=== PATIENT | male | born 1965 | race Caucasian/White ===

== ENCOUNTER 2018-06-11 11:11 | Emergency (ER) | payer SELFPAY ==
[~2018-06-11] VITALS: Ht 172.7 cm; Wt 53.1 kg
[~2018-06-11 11:11] MED LIST: AMOX-355 PO; BSP10T PO; CITA10TA70 PO; FLC100T1 PO; HYOS0.1217 PO; LEVO500T69 PO; METO-352 PO; METR500T PO; NYST1000 PO; ONDAN4ODT PO; PNT40TEC PO
--- OUTSIDE RECORDS SUMMARY | 2018-06-11 11:18 | XMS REPORT | Continuity of Care Document ---
Author Author [facility] Organization [facility] Address Unknown Phone Unavailable Allergies Active Description Code Type Severity Reaction Onset Reported/Identified Relationship to Patient Clinical Status Yes No Known Drug Allergies [id number] Drug Allergy Unknown N/A 01/28/2012 Medications There is no data. Problems Date Dx Coded Attending Type Code Diagnosis Diagnosed By 02/04/2012 Ot 311 02/04/2012 Ot 401.9 02/04/2012 Ot 562.11 02/04/2012 Ot 569.5 12/17/2012 Ot 558.9 12/17/2012 Ot 562.10 12/17/2012 Ot 789.00 03/20/2015 Ot 288.60 Procedures There is no data. Results There is no data. Encounters ACCT No. Visit Date/Time Discharge Status Pt. Type Provider Facility Loc./Unit Complaint [id number] 03/20/2015 11:55:00 03/20/2015 15:43:00 DIS Emergency MARY SERRA, RICARDO Roman [facility] ER [id number] 06/11/2018 11:12:00 ACT Emergency EDUARDO SERRA, LUCAS [place] [facility] ER TROUBLE CATCHING BREATH,WEIGHT LOSS [id number] 03/20/2015 20:55:00 Document Registration [id number] 12/17/2012 11:55:00 Document Registration [id number] 02/10/2012 09:28:00 Document Registration
--- OUTSIDE RECORDS SUMMARY | 2018-06-11 11:18 | XMS REPORT ---
Author Author ANTWAN BOWMAN Organization [employer] Address Unknown Phone Unavailable Care Team Providers Care Vice Chancellor Name Role Phone ANTWAN BOWMAN CP Unavailable Allergies, Adverse Reactions, Alerts Substance Reaction Event Type N.K.D.A. Info Not Available Non Drug Allergy Problems Problem Type Condition Code Onset Dates Condition Status Assessment Tobacco abuse counseling Z71.6 Active Assessment Alcohol abuse F10.10 Active Assessment Tobacco abuse Z72.0 Active Assessment Decreased lung sounds R06.89 Active Problem Alcohol abuse F10.10 Active Problem Tobacco abuse Z72.0 Active Problem Elevated blood pressure (not hypertension) R03.0 Active Assessment General medical exam Z00.00 Active Assessment Elevated blood pressure (not hypertension) R03.0 Active Problem Tobacco abuse counseling Z71.6 Active Problem Decreased lung sounds R06.89 Active Medications Medication Code System Code Instructions Start Date End Date Status Dosage Abilify [facility] [address]-17 10 MG Orally Once a day 1 tablet Procedures Procedure Coding System Code Date Office Visit, New Pt., Level 3 CPT-4 27116 Oct 11, 2015 Vital Signs Date/Time: Oct 11, 2015 Temperature 97.0 F Weight 141.0 lbs Height 68 in BMI 21.44 Index Blood Pressure Diastolic 90 mmHg Blood Pressure Systolic 142 mmHg Cardiac Monitoring Heart Rate 70 bpm Results No Known Results Summary Purpose [employer] Submission
--- OUTSIDE RECORDS SUMMARY | 2018-06-11 11:18 | XMS REPORT ---
Author Author COLBY ANTWAN Organization [facility] Address [address] [place] [address] Care Team Providers Care Photographic Laboratory Supervisor Name Role Phone ANTWAN BOWMAN Unavailable PROBLEMS Type Condition ICD9-CM Code UTM43-SS Code Onset Dates Condition Status SNOMED Code Problem Paresthesia of skin R20.2 Active 30418872 Problem Tobacco abuse counseling Z71.6 Active 574861686 Problem Elevated blood pressure (not hypertension) R03.0 Active 515881392 Problem Decreased lung sounds R06.89 Active 54435102 Problem Tobacco abuse Z72.0 Active 62588002 Problem Alcohol abuse F10.10 Active 30887269 ALLERGIES No Information ENCOUNTERS Encounter Location Date Diagnosis [facility] [address] [address] Apr, Paresthesia of skin R20.2 and Pain in unspecified limb M79.609 [facility] [address] [address] Feb, [facility] [id number] [place] [phone] Nov, [facility] [id number] [place] [phone] 15 Sep, 2015 General medical exam Z00.00 ; Elevated blood pressure (not hypertension) R03.0 ; Alcohol abuse F10.10 ; Tobacco abuse Z72.0 ; Tobacco abuse counseling Z71.6 and Decreased lung sounds R06.89 [facility] [id number] [place] [phone] 14 Dec, 2014 [facility] [id number] [place] [phone] Dec, [facility] [id number] [address] Oct, IMMUNIZATIONS No Known Immunizations SOCIAL HISTORY Never Assessed REASON FOR VISIT Requests return call PLAN OF CARE VITAL SIGNS MEDICATIONS No Known Medications RESULTS No Results PROCEDURES No Known procedures INSTRUCTIONS MEDICATIONS ADMINISTERED No Known Medications MEDICAL (GENERAL) HISTORY Type Description Date Medical History hypertension Medical History depression Surgical History bowel surgery for ruptured diverticuli 01/2013 Surgical History left knee arthroscopy Surgical History right knee arthroscopy Surgical History shoulder dislocation Hospitalization History surgery
--- OUTSIDE RECORDS SUMMARY | 2018-06-11 11:18 | XMS REPORT ---
Author Author MEKA MAYA [facility] Address [address] [place] [address] Care Team Providers Care Information Clerk Name Role Phone MAYAMEKA Unavailable PROBLEMS Type Condition ICD9-CM Code WVK39-ZN Code Onset Dates Condition Status SNOMED Code Problem Tobacco abuse counseling Z71.6 Active 010709511 Problem Tobacco abuse Z72.0 Active 21930507 Problem Decreased lung sounds R06.89 Active 44722455 Problem Alcohol abuse F10.10 Active 09992481 Problem Elevated blood pressure (not hypertension) R03.0 Active 418648211 ALLERGIES No Information ENCOUNTERS Encounter Location Date Diagnosis [facility] [address] [address] Feb, 2018 [facility] [address] [phone] Nov, [facility] [address] [address] 15 Sep, 2015 General medical exam Z00.00 ; Elevated blood pressure (not hypertension) R03.0 ; Alcohol abuse F10.10 ; Tobacco abuse Z72.0 ; Tobacco abuse counseling Z71.6 and Decreased lung sounds R06.89 [facility] [id number] [place] [phone] Dec, [facility] [address] [address] Dec, [address] [address] Oct, IMMUNIZATIONS No Known Immunizations SOCIAL HISTORY Never Assessed REASON FOR VISIT cough, congestion, runny nose. been sick for 4 months. jimenez, instructed pt to take tylenol for fever if he developes one. also try some OTC zyrtec for allergies. will also get an establish care appt for pt. pt verbalized understanding. PLAN OF CARE VITAL SIGNS Height 68 in 2017-12-07 Weight 132.4 lbs 2017-12-07 Temperature 97.7 degrees Fahrenheit 2017-12-07 Heart Rate 74 bpm 2017-12-07 Respiratory Rate 20 2017-12-07 BMI 20.13 kg/m2 2017-12-07 Blood pressure systolic 140 mmHg 2017-12-07 Blood pressure diastolic 84 mmHg 2017-12-07 MEDICATIONS Medication Instructions Dosage Frequency Start Date End Date Duration Status buspirone 15 mg TAKE 1 Tablet by Orally route 1 daily Oct, Not-Taking Abilify 10 MG Orally Once a day 1 tablet 24h Active Lexapro 10 mg take 1 tablet (10 mg) by oral route once daily Oct, Not-Taking RESULTS No Results PROCEDURES No Known procedures INSTRUCTIONS MEDICATIONS ADMINISTERED No Known Medications MEDICAL (GENERAL) HISTORY Type Description Date Medical History hypertension Medical History depression Surgical History bowel surgery for ruptured diverticuli 01/2013 Surgical History left knee arthroscopy Surgical History right knee arthroscopy Surgical History shoulder dislocation
[2018-06-11] MEDS ORDERED: RT-ALBUTEROL/IPRATROPIUM 3 ML (DUONEB) VIAL INH ONE (11:30)
[2018-06-11] MEDS ORDERED: cloNIDine 0.1 MG (CATAPRES) TAB PO ONE (11:30)
[2018-06-11 11:32] LABS: BASOPHILS % (AUTO) 0 % (0-10); EOSINOPHILS % (AUTO) 0 % (0-10); HEMATOCRIT 47 % (40-54); HEMOGLOBIN 16.8 G/DL (13.3-17.7); LYMPHOCYTES # (AUTO) 1.7 X 10^3 (1.0-4.0); LYMPHOCYTES % (AUTO) 12 % (12-44); MEAN CORPUSCULAR HEMOGLOBIN 32 PG (25-34); MEAN CORPUSCULAR HGB CONC 36 G/DL (32-36); MEAN CORPUSCULAR VOLUME 90 FL (80-99); MEAN PLATELET VOLUME 9.3 FL (7.4-10.4); MONOCYTES # (AUTO) 1.3 X 10^3 (0.0-1.0); MONOCYTES % (AUTO) 9 % (0-12); NEUTROPHILS # (AUTO) 11.6 X 10^3 (1.8-7.8); NEUTROPHILS % (AUTO) 79 % (42-75); PLATELET COUNT 313 10^3/uL (130-400); RED BLOOD COUNT 5.23 10^6/uL (4.35-5.85); RED CELL DISTRIBUTION WIDTH 14.1 % (10.0-14.5); WHITE BLOOD COUNT 14.6 10^3/uL (4.3-11.0)
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
[2018-06-11 11:50] LABS: ALANINE AMINOTRANSFERASE 17 U/L (0-55); ALBUMIN 4.7 GM/DL (3.2-4.5); ALKALINE PHOSPHATASE 92 U/L (40-136); BILIRUBIN,TOTAL 0.9 MG/DL (0.1-1.0); BUN/CREATININE RATIO 13; CALCIUM 9.8 MG/DL (8.5-10.1); CARBON DIOXIDE 21 MMOL/L (21-32); CHLORIDE 100 MMOL/L (98-107); CREATININE SERUM 1.13 MG/DL (0.60-1.30); GFR ESTIMATED > 60; GLUCOSE 141 MG/DL (70-105); LIPASE 59 U/L (8-78); POTASSIUM 3.3 MMOL/L (3.6-5.0); SODIUM 138 MMOL/L (135-145); TOTAL PROTEIN 6.9 GM/DL (6.4-8.2)
[2018-06-11 11:57] LABS: BAND NEUTROPHILS 2 %; BASOPHILS % (MANUAL) 0 %; EOSINOPHILS % (MANUAL) 0 %; LYMPHOCYTES % (MANUAL) 6 %; MONOCYTES % (MANUAL) 7 %; NEUTROPHILS % (MANUAL) 85 %; RBC MORPH NORMAL
[2018-06-11] MEDS ORDERED: NS 250 ML (IVPB) BAG IV ONE (12:15)
[2018-06-11] MEDS ORDERED: IOHEXOL 350 MG/ML 150 ML (OMNIPAQUE 350) VIAL IV ONE (12:15)
[2018-06-11] MEDS ORDERED: CATHETER FLUSH 10 ML SYR IV PRN (12:15)
--- NOTE | 2018-06-11 12:36 | Diagnostic Imaging Report ---
CT CARLOS CHEST/NOANG ABD-PELV W Technique: Contiguous axial imaging of the chest was performed after intravenous contrast administration. MIP reformats were created according to the angiogram protocol. Postcontrast imaging of the abdomen and pelvis was then performed. Sagittal and coronal reformats were also created. Indication: Shortness of air, with vomiting. History of diverticulitis. COMPARISON: CT abdomen and pelvis of 12/17/2012 FINDINGS: CT CHEST: No pulmonary emboli, right ventricular strain or features of pulmonary hypertension. Normal caliber thoracic aorta without evidence of dissection or pseudoaneurysm. No adenopathy within the chest. Thyroid is normal. Normal heart size without pericardial effusion. No pleural effusion or pneumothorax. No endoluminal lesion within the trachea. Mild emphysema within the upper lobes. Otherwise, lungs are clear. No concerning focal osseous lesions. CT ABDOMEN AND PELVIS: No free intraperitoneal air or fluid. The liver, gallbladder, spleen and pancreas are normal. No adrenal mass. Kidneys enhance symmetrically without obstruction. Prostate is borderline enlarged. Urinary bladder is unremarkable. No pericolonic inflammatory changes or bowel obstruction. Normal appendix. No abdominal or pelvic lymphadenopathy. Normal caliber abdominal aorta with moderate atherosclerotic plaquing. The stomach is partially distended with fluid. IMPRESSION: CHEST: No acute cardiopulmonary process. Specifically, no pulmonary emboli. ABDOMEN AND PELVIS: No acute obstructive or inflammatory process in the abdomen or pelvis. Specifically, there are no features of recurrent diverticulitis. Dictated by: Dictated on workstation # [id number]
--- NOTE | 2018-06-11 12:36 | Diagnostic Imaging Report ---
INDICATION: Chest pain. COMPARISON: CTA chest performed earlier the same day. FINDINGS: Lungs are clear. No pleural effusion or pneumothorax. Normal cardiomediastinal silhouette and pulmonary vasculature. IMPRESSION: Negative chest. Dictated by: Dictated on workstation # [id number]
[2018-06-11] MEDS ORDERED: CEFU250T80 PO (13:03)
[2018-06-11] MEDS ORDERED: RT-ALBUINH IH (13:03)
[2018-06-11] MEDS ORDERED: PRD20T PO (13:03)
[2018-06-11 13:11] LABS: BILIRUBIN,URINE NEGATIVE (NEGATIVE); CLARITY,URINE SLIGHTLY CLOUDY; COLOR,URINE YELLOW; GLUCOSE, URINE (UA) NEGATIVE (NEGATIVE); KETONES,URINE NEGATIVE (NEGATIVE); LEUKOCYTE ESTERASE ,URINE NEGATIVE (NEGATIVE); NITRITE,URINE NEGATIVE (NEGATIVE); PH,URINE 7 (5-9); PROTEIN,URINE 2+ (NEGATIVE); UROBILINOGEN,URINE NORMAL (NORMAL)
[2018-06-11 13:24] VITALS: BP 149/97
[2018-06-11 13:36] LABS: BACTERIA,URINE NEGATIVE /HPF; WBC,URINE 0-2 /HPF
== END 2018-06-11 13:24 | disposition home or self-care (01) ==
LOC: EDUNIT# 11:11 → ER 11:12
DX: J44.1 Chronic obstructive pulmonary disease with (acute) exacerbation (principal); I10 Essential (primary) hypertension; F41.9 Anxiety disorder, unspecified; F32.9 Major depressive disorder, single episode, unspecified; F17.210 Nicotine dependence, cigarettes, uncomplicated; Z87.19 Personal history of other diseases of the digestive system
CPT/HCPCS: 36415; 71046; 71275; 74177; 80053; 81000; 83690; 84484; 85007; 85027; 85379; 93005; 94640

== ENCOUNTER 2021-02-26 01:10 | Emergency (ER) | payer SELFPAY ==
[~2021-02-26] VITALS: Ht 172.7 cm; Wt 60.0 kg
[~2021-02-26 01:10] MED LIST changes: +CEFU250T80 PO; +PRD20T PO; +RT-ALBUINH IH
[2021-02-26] MEDS ORDERED: LACTATED RINGERS 1,000 ML IV ONE (01:15)
[2021-02-26] MEDS ORDERED: TETANUS,DIPTH,PERTUSS P/F (BOOSTRIX) 0.5 ML VIAL IM ONE (01:15)
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
[2021-02-26 01:24] LABS: BASOPHILS # (AUTO) 0.2 10^3/uL (0.0-0.1); BASOPHILS % (AUTO) 2 % (0-10); EOSINOPHILS # (AUTO) 0.3 10^3/uL (0.0-0.3); EOSINOPHILS % (AUTO) 3 % (0-10); HEMATOCRIT 48 % (40-54); HEMOGLOBIN 16.6 g/dL (13.3-17.7); LYMPHOCYTES # (AUTO) 2.9 10^3/uL (1.0-4.0); LYMPHOCYTES % (AUTO) 27 % (12-44); MEAN CORPUSCULAR HEMOGLOBIN 32 pg (25-34); MEAN CORPUSCULAR HGB CONC 35 g/dL (32-36); MEAN CORPUSCULAR VOLUME 92 fL (80-99); MEAN PLATELET VOLUME 9.1 fL (9.0-12.2); MONOCYTES # (AUTO) 0.7 10^3/uL (0.0-1.0); MONOCYTES % (AUTO) 6 % (0-12); NEUTROPHILS # (AUTO) 6.6 10^3/uL (1.8-7.8); NEUTROPHILS % (AUTO) 61 % (42-75); PLATELET COUNT 314 10^3/uL (130-400); WHITE BLOOD COUNT 10.7 10^3/uL (4.3-11.0)
[2021-02-26 01:35] LABS: ALBUMIN 4.2 GM/DL (3.2-4.5); CHLORIDE 102 MMOL/L (98-107); POTASSIUM 3.6 MMOL/L (3.6-5.0); SODIUM 137 MMOL/L (135-145)
[2021-02-26 01:37] LABS: CALCIUM 8.7 MG/DL (8.5-10.1)
[2021-02-26 01:38] LABS: GLUCOSE 120 MG/DL (70-105); TOTAL PROTEIN 6.7 GM/DL (6.4-8.2)
[2021-02-26 01:39] LABS: CARBON DIOXIDE 18 MMOL/L (21-32)
[2021-02-26 01:40] LABS: BILIRUBIN,TOTAL 0.2 MG/DL (0.1-1.0)
[2021-02-26 01:42] LABS: ALKALINE PHOSPHATASE 88 U/L (40-136); CREATININE SERUM 1.05 MG/DL (0.60-1.30); GFR ESTIMATED > 60
[2021-02-26 01:43] LABS: BUN/CREATININE RATIO 10
[2021-02-26 01:44] LABS: ACETAMINOPHEN < 10 UG/ML (10-30)
[2021-02-26 01:45] LABS: ALANINE AMINOTRANSFERASE 11 U/L (0-55)
[2021-02-26] MEDS ORDERED: ONDANSETRON 4 MG/2 ML (SDV) Z0FRAN ONE (02:03)
[2021-02-26] MEDS ORDERED: ONDANSETRON 4 MG/2 ML (SDV) Z0FRAN IVP ONE (02:15)
[2021-02-26] MEDS ORDERED: hydrALAZINE (APESOLINE) 20 MG/ML VIAL IV ONE (02:30)
[2021-02-26 03:25] LABS: BILIRUBIN,URINE NEGATIVE (NEGATIVE); CLARITY,URINE CLEAR; COLOR,URINE YELLOW; GLUCOSE, URINE (UA) NEGATIVE (NEGATIVE); KETONES,URINE TRACE (NEGATIVE); LEUKOCYTE ESTERASE ,URINE NEGATIVE (NEGATIVE); NITRITE,URINE NEGATIVE (NEGATIVE); PH,URINE 5.5 (5-9); PROTEIN,URINE NEGATIVE (NEGATIVE)
[2021-02-26 03:31] LABS: BACTERIA,URINE NEGATIVE /HPF
[2021-02-26 03:34] LABS: AMPHETAMINE SCREEN, URINE NEGATIVE (NEGATIVE); BARBITURATE SCREEN URINE NEGATIVE (NEGATIVE); BENZODIAZEPINES SCREEN URINE NEGATIVE (NEGATIVE); CANNABINOID SCREEN, URINE POSITIVE (NEGATIVE); COCAINE SCREEN URINE NEGATIVE (NEGATIVE); METHADONE STAT NEGATIVE (NEGATIVE); METHAMPHETAMINE SCREEN URINE S NEGATIVE (NEGATIVE); OPIATE SCREEN URINE NEGATIVE (NEGATIVE); OXYCODONE STAT NEGATIVE (NEGATIVE); PROPOXYPHENE STAT NEGATIVE (NEGATIVE); TRICYCLIC ANTIDEPRESSANTS SCRE NEGATIVE (NEGATIVE)
[2021-02-26 03:35] VITALS: BP 174/97
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
== END 2021-02-26 03:35 | disposition short-term general hospital (02) ==
LOC: EDUNIT# 01:12 → ER 01:14
DX: S02.31XA Fracture of orbital floor, right side, initial encounter for closed fracture (principal); S02.831A Fracture of medial orbital wall, right side, initial encounter for closed fracture; S02.2XXA Fracture of nasal bones, initial encounter for closed fracture; I10 Essential (primary) hypertension; F12.90 Cannabis use, unspecified, uncomplicated; F19.90 Other psychoactive substance use, unspecified, uncomplicated; F10.929 Alcohol use, unspecified with intoxication, unspecified; F41.9 Anxiety disorder, unspecified; F32.9 Major depressive disorder, single episode, unspecified; F17.210 Nicotine dependence, cigarettes, uncomplicated; Z79.899 Other long term (current) drug therapy; X58.XXXA Exposure to other specified factors, initial encounter
CPT/HCPCS: 51702; 70450; 70486; 71045; 72125; 72170; 80053; 80306; 81000; 85025; 93041; 99285; G0480 ×2; 36415; 80320; 80329; 90715